=== PATIENT | female | born 1975 | race Caucasian/White ===

== ENCOUNTER 2016-12-23 13:18 | Observation (INO) ==
[2016-12-23] MEDS ORDERED: PNEUMOVAX 23 IM ONE (15:45)
[2016-12-23] MEDS: DUONEB (A & A) INH SCH ×3 (16:12→22:48)
[2016-12-23] MEDS: HUMALOG (PARKWAY) SUBQ SCH ×2 (16:46→20:52)
[2016-12-23] MEDS ORDERED: MOTRIN PO PRN (18:38)
[2016-12-23] MEDS ORDERED: LEVAQUIN 750 MG/D5W 750 MG/150 ML IVPB IV SCH (18:45)
[2016-12-23] MEDS ORDERED: ZOFRAN IV PRN (18:46)
[2016-12-23] MEDS ORDERED: TYLENOL PO PRN (18:46)
[2016-12-23 19:53] LABS: HEMATOCRIT 39.1 % (37.0-47.0); HEMOGLOBIN 12.6 g/dL (12.0-16.0); MCHC 32.2 g/dL (33-37); MCV 77.7 FL (81-99); MPV 10.5 FL (7.4-10.4); RBC 5.03 XMIL (4.2-5.4)
[2016-12-23 20:20] LABS: AGAP 14; ALBUMIN 4.8 g/dL (3.5-5.0); ALKALINE PHOSPHATASE 44 U/L (32-104); BUN 8 mg/dL (8-22); CALCIUM 9.7 mg/dL (8.8-10.2); CHLORIDE 100 mmol/L (98-107); COSMO 277; GOT 24 U/L (10-30); GPT 18 U/L (10-36); POTASSIUM 3.7 mmol/L (3.5-5.1); SODIUM 139 mmol/L (136-145); TCO2 25 mmol/L (25-35); TOTAL PROTEIN 8.1 g/dL (6.3-8.3)
[2016-12-23] MEDS: DOXYCYCLINE 100 MG in NS 250 ML IV SCH (20:43)
[2016-12-23] MEDS: WELCHOL PO SCH (20:43)
[2016-12-23] MEDS: DIABETA PO SCH (20:44)
[2016-12-23] MEDS: FOLIC ACID PO SCH (20:44)
[2016-12-23] MEDS: LIPITOR PO SCH (20:45)
[2016-12-23] MEDS: TOPROL XL PO SCH (20:45)
[2016-12-23] MEDS: FISH OIL CONCENTRATE PO SCH (20:45)
[2016-12-23] MEDS: ZYRTEC PO SCH (20:46)
[2016-12-23] MEDS: SINGULAIR PO SCH (20:46)
[2016-12-23] MEDS: PRILOSEC PO SCH (20:46)
[2016-12-23] MEDS: TRICOR PO SCH (20:47)
[2016-12-23] MEDS: EFFEXOR XR PO SCH (20:53)
[2016-12-23] MEDS: DESYREL PO SCH (22:00)
[2016-12-23] MEDS: ZANAFLEX PO SCH (22:01)
[2016-12-24] MEDS: DUONEB (A & A) INH SCH ×2 (03:28→07:39)
[2016-12-24 05:42] LABS: HEMATOCRIT 34.2 % (37.0-47.0); HEMOGLOBIN 10.6 g/dL (12.0-16.0); MCH 24.5 PG (27-31); MPV 10.5 FL (7.4-10.4); RBC 4.33 XMIL (4.2-5.4)
[2016-12-24 05:59] LABS: AGAP 13; ALKALINE PHOSPHATASE 35 U/L (32-104); BUN 9 mg/dL (8-22); CALCIUM 8.7 mg/dL (8.8-10.2); CHLORIDE 103 mmol/L (98-107); COSMO 278; GOT 17 U/L (10-30); GPT 14 U/L (10-36); POTASSIUM 3.5 mmol/L (3.5-5.1); SODIUM 138 mmol/L (136-145); TCO2 22 mmol/L (25-35); TOTAL PROTEIN 6.9 g/dL (6.3-8.3)
[2016-12-24] MEDS: HUMALOG (PARKWAY) SUBQ SCH (06:22)
[2016-12-24] MEDS: DOXYCYCLINE 100 MG in NS 250 ML IV SCH (09:43)
[2016-12-24] MEDS ORDERED: DUONEB (A & A) INH PRN (10:37)
[2016-12-24] MEDS ORDERED: DOXYCYCLINE 100 MG in NS 250 ML IV SCH (10:38)
[2016-12-24] MEDS ORDERED: LEVAQUIN 750 MG/D5W 750 MG/150 ML IVPB IV SCH (10:38)
[2016-12-24] MEDS: HUMALOG DOSE (PARKWAY) SUBQ SCH ×3 (12:03→21:55)
[2016-12-24] MEDS ORDERED: JANUVIA PO SCH (21:00)
[2016-12-24] MEDS ORDERED: LEVAQUIN PO SCH (21:00)
[2016-12-24] MEDS ORDERED: THERA M PLUS PO SCH (21:00)
[2016-12-24] MEDS ORDERED: CALTRATE 600 + D PO SCH (21:00)
[2016-12-24] MEDS ORDERED: GLUCOPHAGE PO SCH (21:00)
[2016-12-24] MEDS: FISH OIL CONCENTRATE PO SCH (21:52)
[2016-12-24] MEDS: LIPITOR PO SCH (21:52)
[2016-12-24] MEDS: PRILOSEC PO SCH (21:52)
[2016-12-24] MEDS: WELCHOL PO SCH (21:52)
[2016-12-24] MEDS: DOXYCYCLINE PO SCH (21:53)
[2016-12-24] MEDS: DESYREL PO SCH (21:53)
[2016-12-24] MEDS: FOLIC ACID PO SCH (21:53)
[2016-12-24] MEDS: SINGULAIR PO SCH (21:53)
[2016-12-24] MEDS: TOPROL XL PO SCH (21:53)
[2016-12-24] MEDS: ZANAFLEX PO SCH (21:53)
[2016-12-24] MEDS: EFFEXOR XR PO SCH (21:54)
[2016-12-24] MEDS: DIABETA PO SCH (21:54)
[2016-12-24] MEDS: TRICOR PO SCH (21:54)
[2016-12-24] MEDS: ZYRTEC PO SCH (21:55)
[2016-12-25] MEDS: HUMALOG DOSE (PARKWAY) SUBQ SCH ×2 (06:40→11:50)
[2016-12-25 07:54] VITALS: BP 140/86
[2016-12-25] MEDS: DOXYCYCLINE PO SCH (08:33)
== END 2016-12-25 14:25 | disposition home or self-care (01) ==
LOC: P.DIRADM → P.MEDSURG 13:18
PROVIDERS: ADMIT Family Medicine; ATTEND Family Medicine